=== PATIENT | male | born 2000 | race Caucasian/White ===

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

== ENCOUNTER 2023-02-06 08:35 | Emergency (ER) | payer BC, SELFPAY ==
[2023-02-06 08:36] VITALS: BP 149/71; PULSE 85; RESP 24; TEMP 36.4; O2SAT 99
--- NOTE | 2023-02-06 08:51 | ED.VIS.LOWEX ---
HPI History of Present Illness Chief Complaint: Lower Extremity Injury Informant: patient Narrative Narrative: Patient is a 22-year-old male with history of anxiety and left ACL tear (is due to have surgery with Dr. Hurtado on 02/28) presenting with left knee injury. Patient states he was on a roof about 10 feet up when he fell. He landed on his feet standing. He had immediate pain and swelling of his left knee. Denied his head. No report of loss of consciousness. Came to the ER for further evaluation. No associated numbness or tingling. No other injuries reported. PFSH PFSH Home Medications Propanol 80 mg PO/SL DAILY 09/06/20 [History Last Taken Unknown] albuterol sulfate 90 mcg/actuation aerosol inhaler (ProAir HFA) 1 inh inhalation Q6H PRN shortness of breath or wheezing #6.7 grams 09/06/20 [Rx Last Taken Unknown] prednisone 50 mg tablet 50 mg PO DAILY #4 tabs 09/06/20 [Rx Last Taken Unknown] oxycodone-acetaminophen 5 mg-325 mg tablet (Percocet) 1 tab PO Q6H PRN pain 3 days #12 tabs 02/06/23 [Rx Last Taken Unknown] Allergy/AdvReac Type Severity Reaction Status Date / Time No Known Allergies Allergy Verified 02/06/23 08:38 Social History Smoking Status: Never smoker ROS ROS ED Constitutional Constitutional ED: Denies chills or fever(s) Cardiovascular Cardiovascular: Denies chest pain Gastrointestinal Gastrointestinal: Denies nausea or vomiting Musculoskeletal Musculoskeletal: Reports other Details: Left knee pain Integumentary Reports Abrasions Neurologic Neurologic: Denies headache(s), paresthesias or weakness Psychiatric Psychiatric: Reports anxiety Hematologic/Lymphatic Hematologic/Lymphatic: Denies easy bleeding or easy bruising EXAM Physical Exam Const Vital Signs: 02/06/23 08:36 Temperature 97.6 F L Temperature Source Temporal Pulse Rate 85 Respiratory Rate 24 H Blood Pressure 149/71 H Blood Pressure Mean 97 Pulse Ox 99 Oxygen Delivery Method Room Air Positive well nourished and well developed Constitutional Narrative: Uncomfortable appearing General Appearance ED: well developed HEENT Reports moist mucous membranes Neck full ROM and supple Chest Wall inspection of chest normal and palpation of chest normal Resp normal respiratory effort Cardio regular rate and regular rhythm Back/Spine Thoracic Spine / Upper Back: Negative for thoracic spinal tenderness Lumbar Spine / Lower Back: Negative for lumbar spinal tenderness Extremity Extremity Narrative: Left lower extremity?normal range of motion of the hip with negative pain on logroll. No rotational deformity of the extremity. Decreased range of motion secondary to pain and swelling of the left knee. Effusion noted of the knee. Tenderness palpation of the medial lateral aspect of the knee. Patella does not appear particularly high riding and he has intact extensor mechanism. No proximal fibular head tenderness but there is associated edema to that area. No obvious deformity of the ankle. Pelvis is stable. 2+ left DP pulse Neuro oriented x3, moves all extremities and no sensory deficits noted Psych mental status grossly normal Mood & Affect: anxious Skin no wounds Skin Narrative: Superficial nonbleeding abrasion to the left medial anterior mejia just below the knee MDM MDM MDM Narrative Medical decision making narrative: Patient evaluated for traumatic left knee injury. Has a large effusion on exam but no other obvious deformity consistent with a dislocation. Extensor mechanism intact. With ice and rest action patient started to have pain improvement and morphine is canceled. He is given a dose of Toradol. X-ray of the knee reviewed by myself as well as radiology shows a moderate-sized joint effusion and intra-articular loose bodies. X-ray of the tibia and fibula does not show any acute process but does show soft tissue swelling. Differential includes dislocation, meniscal injury, tibial plateau fracture or other knee fracture. CT of the knee is obtained to better visualize the knee joint due to the abnormalities on the x-ray. This shows avulsion fracture of the inferior aspect of the patella as well as anterior condylar eminence with evidence of intra-articular loose bodies and diffuse soft tissue swelling as well as moderate size joint effusion. This case is discussed with the patient's orthopedist, Dr. Hurtado. He recommends placing patient in posterior long-leg splint, touchdown weightbearing with crutches and follow-up in the office. Likely he will require another MRI before his planned knee surgery for next month. Patient be given a prescription for pain control with oxycodone. Counseled to also alternate ibuprofen and Tylenol but cautioned that there is Tylenol and Percocet. Patient and family verbalize agreement understands plan. Patient discharged home in stable improved condition. Radiography Diagnostic Testing: Clinical Impression(s) from Imaging Studies Knee X-Ray 02/06/23 08:52 IMPRESSION: Moderate-sized joint effusion. Findings suggestive of intra-articular loose bodies. Electronically Signed: Everett Saldivar MD at 9:15 EDT , Tibia/Fibula X-Ray 02/06/23 08:52 IMPRESSION: Soft tissue swelling. Electronically Signed: Everett Saldivar MD at 9:16 EDT , Lower Extremity CT 02/06/23 09:26 IMPRESSION: Avulsion fracture of the inferior aspect of the patella as well as the anterior condylar eminence with evidence of intra-articular loose bodies. Diffuse soft tissue swelling as well as moderate size joint effusion. Electronically Signed: Everett Saldivar MD at 10:54 EDT , Procedures Lower Extremity Splints Lower Extremity Splint: Orthoglass and Long leg Splint Fabrication: Fabricated Location: Left Discharge Plan Triage Chief Complaint: Lower Extremity Injury ED Provider: Michelle Peace Dx/Rx/DC Orders Clinical Impression: Effusion of knee joint, left, Avulsion fracture of bone Instructions: ED Knee Effusion, ED Patella Fracture Prescriptions: New oxycodone-acetaminophen [Percocet] 5-325 mg tablet 1 tab PO Q6H PRN (Reason: pain) 3 Days Qty: 12 0RF No Action Propanol 80 mg PO/SL DAILY albuterol sulfate [ProAir HFA] 90 mcg/actuation HFA aerosol inhaler 1 inh inhalation Q6H PRN (Reason: shortness of breath or wheezing) Qty: 6.7 0RF prednisone 50 mg tablet 50 mg PO DAILY Qty: 4 0RF Primary Care Provider: Christiano Nicholas Referrals: Christiano Nicholas MD [Primary Care Provider] - Donte Hurtado DO [Med Staff - Active Staff] - As soon as possible Activity Restrictions/Additional Instructions: Use crutches and only toe-touch for weightbearing of the foot. Continue to ice the knee area through the splint. Follow-up as soon as possible in the office with orthopedics. Please bring your new knee immobilizer that you have at home to the office with a likely transition you to that splint. Disposition Disposition: Home, Self Care Discharge Date/Time: 02/06/23 12:38
--- NOTE | 2023-02-06 08:52 | RAD_ITS ---
STUDY: X-RAY - LEFT TIBIA AND FIBULA REASON FOR EXAM: Male, 22 years old. Injury/Pain TECHNIQUE: 2 view(s) of the tibia and fibula were obtained. COMPARISON: None. FINDINGS: Normal visualized tibia. Normal visualized fibula. Intra-articular loose body within the knee joint. Soft tissue swelling. RAD/Tibia & Fibula 2 Views IMPRESSION: Soft tissue swelling. Electronically Signed: Everett Saldivar MD at 9:16 EDT ,
--- NOTE | 2023-02-06 08:52 | RAD_ITS ---
STUDY: X-RAY - LEFT KNEE REASON FOR EXAM: Male, 22 years old. Injury/Pain following a fall. TECHNIQUE: 4 view(s) of the knee. COMPARISON: Comparison is made with prior study dated January 07, 2019. FINDINGS: Normal visualized distal femur. Normal visualized proximal tibia and fibula. Normal proximal tibiofibular articulation. Normal medial femorotibial compartment. Normal lateral femorotibial compartment. Normal patellofemoral articulation. There is an 8.6 mm well-defined bony fragment in the intra-articular space. Adjacent to this, is a 2.1 mm ossific density. This may represent joint mice. Moderate-sized joint effusion. RAD/Knee 4 or More Views IMPRESSION: Moderate-sized joint effusion. Findings suggestive of intra-articular loose bodies. Electronically Signed: Everett Saldivar MD at 9:15 EDT ,
--- NOTE | 2023-02-06 09:26 | CT_ITS ---
CT LEFT LOWER EXTREMITY WITH 3-D IMAGING CLINICAL INDICATION: knee pain, trauma TECHNIQUE: Axial CT images of the LEFT lower extremity was performed without IV contrast material. Coronal and sagittal reformats as well as 3D reformats were provided. RADIATION DOSAGE (If Supplied By Facility): CTDIvol = ( 15.35 ) mGy, DLP = ( 518.79 ) mGycm COMPARISON: Prior study dated: Right knee radiograph done earlier today. FINDINGS: Bones: There is evidence of avulsion fractures of the intercondylar eminence. Avulsion fracture along the inferior margin of the patella. Soft Tissues: Moderate size joint effusion. Diffuse soft tissue swelling. CT/Extremity Lower without Contra IMPRESSION: Avulsion fracture of the inferior aspect of the patella as well as the anterior condylar eminence with evidence of intra-articular loose bodies. Diffuse soft tissue swelling as well as moderate size joint effusion. Electronically Signed: Everett Saldivar MD at 10:54 EDT ,
[2023-02-06] MEDS: Ketorolac 15 MG/ML Vial IV (09:30)
--- NOTE | 2023-02-06 12:09 | ED.RN ---
Patient has crutches at home, does not want another set.
== END 2023-02-06 12:38 | disposition home or self-care (01) ==
PROVIDERS: Emergency Provider Emergency Medicine; PCP Family Medicine; Visit Provider Emergency Medicine
DX: M25.462 Effusion, left knee (principal); S82.009A Unspecified fracture of unspecified patella, initial encounter for closed fracture; F41.9 Anxiety disorder, unspecified; W13.2XXA Fall from, out of or through roof, initial encounter
CPT/HCPCS: 29505; 73564; 73590; 73700; 96374; 96375; 99282; J2405

== ENCOUNTER → 2023-09-19 | Outpatient (CLI) | payer BC, SELFPAY ==
[2023-09-19 09:41] LABS: Basophil# 0.03 X10^3/uL; Basophil% 0.5 % (0-1); Eosinophil# 0.33 X10^3/uL; Eosinophils% 5.5 % (0-5); Hematocrit 46.1 % (40-54); Hemoglobin 15.5 g/dL (13.0-16.5); Lymphocyte % 33.6 % (19-41); Mean Corp Hgb Conc 33.6 g/dL (32-36); Mean Corpuscular Hgb 29.1 pg (27.0-32.0); Mean Corpuscular Volume 86.7 fL (80-94); Mean Platelet Vol. 10.2 fl (6.2-12.0); Monocyte# 0.53 X10^3/uL; Monocyte% 8.9 % (0-10); NRBC Flagged by Analyzer 0 % (0-5); Neutrophil # 3.04 X10^3/uL (2.7-7.7); Platelet Count 212 K/mm3 (150-450); RBC Distribution Width CV 12.6 % (11.6-14.6); RBC Distribution Width SD 39.8 fl (35.1-43.9); Red Blood Count 5.32 M/mm3 (4.6-6.2)
[2023-09-19 09:58] LABS: Vitamin B12 554 pg/mL (211-911); Vitamin D,25 Hydroxy 30.4 ng/mL
[2023-09-19 10:07] LABS: ALB/GLOB Ratio 1.1 RATIO (0.9-2.4); AST(SGOT) 18 U/L (15-37); Alanine Aminotransfer ALT/SGPT 32 U/L (16-61); Alkaline Phosphatase 138 U/L (45-117); Anion Gap 6 (5-15); BUN 17 mg/dL (7-18); BUN/Creat Ratio 18.5 RATIO (10-20); Calcium,Total 9.2 mg/dL (8.5-10.1); Chloride 106 mmol/L (98-107); Creatinine, Serum 0.92 mg/dL (0.70-1.30); EST Glomerular Filtration Rate 111 mL/min (>60); Est Glom Filt Rate - Afr Amer 134 mL/min (>60); Globulin 3.8 g/dL (2.2-4.2); Glucose 111 mg/dL (74-106); Potassium 3.8 mmol/L (3.5-5.1); Protein, Total 7.8 g/dL (6.4-8.2); Sodium Level 138 mmol/L (136-145); T4 Free Direct 0.87 ng/dL (0.76-1.46); Thyroid Stim Hormone (TSH) 2.43 uIU/mL (0.358-3.74)
== END | disposition home or self-care (01) ==
LOC: MFPLAB 08:21
PROVIDERS: PCP Family Medicine; Visit Provider Family Medicine
DX: R53.83 Other fatigue (principal)
CPT/HCPCS: 36415; 80053; 82306; 82607; 84439; 84443; 85025

== ENCOUNTER → 2024-06-06 | Outpatient (CLI) | payer BC, SELFPAY ==
[2024-06-06 14:59] LABS: Internal QC Validated? YES +Cl - CLEAR BKGD; Monotest Negative (Negative); Record Kit Lot#, Mono 13241430
== END | disposition home or self-care (01) ==
LOC: MFPLAB 10:16
PROVIDERS: PCP Family Medicine; Referring Provider Family Medicine; Visit Provider Family Medicine
DX: J02.9 Acute pharyngitis, unspecified (principal)
CPT/HCPCS: 36415; 86308